=== PATIENT | female | born 1990 | race Asian ===

== ENCOUNTER 2020-06-22 18:12 | Emergency (ER) | payer MEDICAID ==
[~2020-06-22] VITALS: Ht 160 cm; Wt 73.0 kg
[~2020-06-22 18:12] MED LIST: ETON1VAG5 VG
[2020-06-22 18:18] VITALS: BP 123/87
--- NOTE | 2020-06-22 18:57 | NUR ---
Port aliaay in [facility]
== END 2020-06-22 19:40 | disposition home or self-care (01) ==
LOC: ER 18:13
DX: U07.1 COVID-19 (principal); R07.89 Other chest pain; R51.9 Headache, unspecified; R61 Generalized hyperhidrosis; Z88.2 Allergy status to sulfonamides; Z88.1 Allergy status to other antibiotic agents; Z88.8 Allergy status to other drugs, medicaments and biological substances; Z79.899 Other long term (current) drug therapy
CPT/HCPCS: 71045; 93005; 99283

== ENCOUNTER 2021-09-26 09:45 | Emergency (ER) | payer MEDICAID ==
[~2021-09-26] VITALS: Ht 157.5 cm; Wt 79.0 kg
[2021-09-26 09:50] VITALS: BP 157/102
--- NOTE | 2021-09-26 10:12 | NUR ---
PROVIDER AT BEDSIDE.
[2021-09-26] MEDS ORDERED: HYDR-3686 PO (10:38)
== END 2021-09-26 10:56 | disposition home or self-care (01) ==
LOC: ER 09:46
DX: F41.9 Anxiety disorder, unspecified (principal); I10 Essential (primary) hypertension; R00.2 Palpitations; Z88.2 Allergy status to sulfonamides; Z88.1 Allergy status to other antibiotic agents; Z88.8 Allergy status to other drugs, medicaments and biological substances; Z79.899 Other long term (current) drug therapy
CPT/HCPCS: 93005; 99283